=== PATIENT | female | born 1980 | race Asian ===

== ENCOUNTER 2022-09-21 15:54 | Outpatient (CLI) | payer OTHER ==
[2022-09-21] MEDS ORDERED: GADOBUTROL 7.5 MMOL/7.5 ML VIAL ONE (16:46)
[2022-09-21] MEDS ORDERED: GADOBUTROL 7.5 MMOL/7.5 ML VIAL IVP ONE (18:30)
--- NOTE | 2022-09-21 18:31 | MRI Report ---
PROCEDURE: BRAIN W/WO INDICATIONS: SPEECH DISTURBANCE CONTRAST: gadavist 7.5ml TECHNIQUE: Noncontrast axial T1 spin echo, axial T2 fast spin echo, sagittal and axial FLAIR, coronal T2 fast sp in echo, axial gradient echo, axial diffusion and ADC through the brain. After the administration of contrast, axial and coronal T1 spin echo with fat saturation through the brain. COMPARISON: None. FINDINGS: Image quality: Excellent. CSF spaces: Basal cisterns are patent. No extra-axial fluid collections. Ventricles are normal in size and shape. Brain: No midline shift. No intracranial bleeds or masses. No abnormal intracranial enhancement. There is cerebral volume loss for age. There is periventricular white matter chronic small vessel is chemic change. The brainstem appears normal. Diffusion-weighted images demonstrate no acute ischemi c insults. No chronic ischemic insults. Normal intravascular flow voids are present. Skull and face: Calvarial marrow is normal in signal. Orbits appear normal. There is an ovoid cyst ic lesion seen involving the bridge of the nose, that measures 1 cm transversely. No significant enha ncement can be seen at this lesion. Sinuses: Sinuses and mastoids appear clear. IMPRESSION: No findings of acute or subacute infarction are seen. No significant intracranial abnormality is seen. No masses or abnormal enhancement can be seen. Incidental note is made of a 1 cm cystic lesion along the bridge of the nose, without significant enh ancement. Reviewed by: Oswald Tompkins MD on 09/21/2022 5:30 PM [place] Approved by: Oswald Tompkins MD on 09/21/2022 5:30 PM [facility] Station ID: [id number]
== END 2022-09-21 15:55 | disposition home or self-care (01) ==
LOC: DI 15:54
PROVIDERS: ATTEND Student in an Organized Health Care Education/Training Program
DX: R47.02 Dysphasia (principal)
CPT/HCPCS: 70553; A9585

== ENCOUNTER 2024-01-08 12:21 | Outpatient (CLI) | payer OTHER | END 2024-01-08 12:22 | disposition home or self-care (01) | LOC: DI 12:21 | PROVIDERS: ATTEND Student in an Organized Health Care Education/Training Program | DX: R00.2 Palpitations (principal) | CPT/HCPCS: 93307 ==

== ENCOUNTER 2024-03-25 09:38 | Emergency (ER) | payer OTHER ==
--- NOTE | 2024-03-25 11:19 | ED Physician Documentation ---
PD HPI BACK PAIN - Stated complaint Stated Complaint: LOWER LT AILYN PX - Chief complaint Chief Complaint: Back Pain - History obtained from History obtained from: Patient - History of Present Illness Timing - onset: How many days ago (several) Timing - duration: Days Timing - details: Abrupt onset (when bent over and felt abrupt pain that has not improved.), Still present Location: Lower, Left Quality: Pain, Spasm, Sharp Associated symptoms: No: Fever, Weakness, Numbness, Incontinent of urine Improves with: Rest. No: Meds (ibuprofen) Worsened by: Movement, Lifting, Twisting Contributing factors: Lifting. No: Trauma Similar symptoms before: Has not had sx before Review of Systems Constitutional: denies: Fever, Chills, Myalgias GI: denies: Abdominal Pain, Nausea, Vomiting, Constipation, Diarrhea : denies: Dysuria Skin: denies: Rash, Lesions Neurologic: denies: Focal weakness, Numbness PD PAST MEDICAL HISTORY - Past Medical History Past Medical History: No - Past Surgical History Past Surgical History: No - Present Medications Home Medications: Ambulatory Orders Medication Instructions Recorded Confirmed HYDROcod/ACETAM 5/325 [[place] 5/325] 1 ea PO Q6H PRN #18 tablet 03/25/24 Lidocaine Patch 5% [Lidoderm Patch] 1 patch TOP DAILY PRN #10 patch 03/25/24 Meloxicam [Mobic] 7.5 mg PO BID 10 Days #20 tablet 03/25/24 methocarbamoL [Robaxin] 500 mg PO Q6H PRN #30 tablet 03/25/24 - Allergies Allergies/Adverse Reactions: Allergies Allergy/AdvReac Type Severity Reaction Status Date / Time No Known Drug Allergies Allergy Verified 03/25/24 09:55 - Social History Does the pt smoke?: No Smoking Status: Never smoker Does the pt drink ETOH?: No Does the pt have substance abuse?: No - Immunizations Immunizations are current?: Yes - POLST Patient has POLST: No PD ED PE NORMAL - Vitals Vital signs reviewed: Yes - General General: Alert and oriented X 3, Well developed/nourished, Other (appears guarding ROM of the lowe back. ) - Abdomen Abdomen: Soft, Non tender - Back Back: No CVA TTP, No spinal TTP, Other - Derm Derm: Normal color, Warm and dry, No rash - Extremities Extremities: No edema, No calf tenderness / cord - Neuro Neuro: Alert and oriented X 3, No motor deficit, No sensory deficit, Other (normal knee reflexes) Results - Vitals Vitals: Oxygen O2 Source Room air PD Medical Decision Making - ED course Complexity details: reviewed results (no significant lumbar disc process nor bony abnormlaity. ENlarged uterine fibroid incidentally noted. No period pain nor unusual menses bleeding. ), considered differential (Sounds likely muscle strain. Was abrupt onset and pt is concerned about disc process. Shared decision for CT scan to look at main structure. This did not show signficant abnormalit y. ), d/w patient Departure - Departure Disposition: Home, Self Care Clinical Impression: Acute low back pain, Strain of lumbar spine Condition: Stable Record reviewed to determine appropriate education?: Yes Instructions: ED Sprain Strain Lumbar Follow-Up: ZECHARIAH Mayorga [Provider Group] Prescriptions: Lidocaine Patch 5% [Lidoderm Patch] 1 patch TOP DAILY PRN #10 patch PRN Reason: pain Meloxicam [Mobic] 7.5 mg PO BID 10 Days #20 tablet HYDROcod/ACETAM 5/325 [[place] 5/325] 1 ea PO Q6H PRN #18 tablet PRN Reason: Pain methocarbamoL [Robaxin] 500 mg PO Q6H PRN #30 tablet PRN Reason: Spasms Comments: Your CT scan does not show any obvious abnormalities to account for the pain. No signs of misalignment, disc protrusions, nerve impingement or bony abnormalities. Will treat this as a muscular strain with spasming with a combination of anti- inflammatories and muscle relaxant as well as topical lidocaine patch. Heat stretching massage or chiropractic are all good as well. Add Tylenol/acetaminophen 500 to 650 mg 4 times daily for the next several days to week or hydrocodone/acetaminophen if needed for worse pains. I provided a duty note for no repetitive bending no lifting and no torsional work for the next 5 or 6 days. Follow-up with your cane band about deployment etc. I sent your prescription to preferred pharmacy. I am prescribing a short course of narcotic pain medication for you. These are potentially dangerous and addictive medications that should be used carefully. These medications may constipate you. Take an zueq-ojo-ipyiycv stool softener such as docusate twice daily with plenty of water while taking these medications. If you go 24 hours without a bowel movement, take kxwj-oll-pexxhwi MiraLAX, per package instructions. Do not drink or drive while taking these medications. If you received narcotic or sedating medications while in the emergency department do not drive for 24 hours. Store this medication in a safe, secure place and out of reach of children. It is a violation of federal law to give or sell this medication to another person or to use in a manner other than prescribed. The ED will not refill narcotic prescriptions, including prescriptions lost or stolen. You can dispose of unwanted medications at the [facility]'s office or at several pharmacies such as [facility] [employer]. Forms: Activity restrictions Discharge Date/Time: 03/25/24 14:12
[2024-03-25] MEDS: LIDOCAINE PATCH 5% TOP STA (12:04)
[2024-03-25] MEDS: KETOROLAC 30 MG/ML VIAL IM STA (12:04)
[2024-03-25] MEDS: methocarbamoL 500 MG TABLET PO STA (12:05)
[2024-03-25] MEDS: ACETAMINOPHEN 500 MG TABLET PO STA (12:05)
--- NOTE | 2024-03-25 13:38 | CT Report ---
PROCEDURE: Lumbar Spine WO INDICATIONS: abrupt lumbar pain with bending/lift TECHNIQUE: Noncontrast 3 mm thick sections acquired from the T12 level to the sacrum. Sagittal and coronal refo rmats were constructed. For radiation dose reduction, the following was used: automated exposure co ntrol, adjustment of mA and/or kV according to patient size. COMPARISON: None. FINDINGS: Image quality: Excellent. Bones: There is normal bony alignment. No acute vertebral body compression fractures. No suspiciou s lytic or blastic bony lesions. Central spinal caliber is of normal overall caliber. No pars defec ts. Mild degenerative changes in the sacroiliac joints bilaterally. T12-L1: No significant spinal canal stenosis or neuroforaminal narrowing. L1-L2: No significant spinal canal stenosis or neuroforaminal narrowing. L2-L3: No significant spinal canal stenosis or neuroforaminal narrowing. L3-L4: Mild disc bulging without significant spinal canal stenosis or neuroforaminal narrowing. L4-L5: Mild disc bulging without significant spinal canal stenosis or neuroforaminal narrowing. L5-S1: Mild disc bulging without significant spinal canal stenosis or neuroforaminal narrowing. Soft tissues: No retroperitoneal masses or hematomas. Visualized aorta is normal in caliber. Enlar ged fibroid uterus. IMPRESSION: 1.No acute osseous abnormality. No high-grade spinal canal stenosis or neuroforaminal narrowing. 2.Enlarged fibroid uterus. Reviewed by: Bridger Awad MD on 03/25/2024 1:37 PM PDT Approved by: Bridger Awad MD on 03/25/2024 1:37 PM PDT Station ID: [id number]
[2024-03-25 14:17] VITALS: BP 124/68; O2SAT 100
== END 2024-03-25 14:12 | disposition home or self-care (01) ==
LOC: ED 09:38
DX: S39.012A Strain of muscle, fascia and tendon of lower back, initial encounter (principal); X50.9XXA Other and unspecified overexertion or strenuous movements or postures, initial encounter
CPT/HCPCS: 72131; 96372; 99283; 99284; A9270